=== PATIENT | female | born 1990 | race Caucasian/White ===

== ENCOUNTER 2017-03-07 14:02 | Emergency (ER) | payer OTHER ==
[~2017-03-07] VITALS: Ht 157.5 cm; Wt 86.6 kg
[~2017-03-07 14:02] MED LIST: MOTRIN 800MG T800 MG PO; PERCOCET 325 MG1 TA2 PO
--- NOTE | 2017-03-07 14:22 | ED GENERAL ADULT ---
See Addendum History of Present Illness General Chief Complaint: Fever Stated Complaint: FEVER TODAY, 38 WEEKS Source: patient Exam Limitations: no limitations Vital Signs & Intake/Output Vital Signs & Intake/Output Vital Signs Date Time Temp Pulse Resp B/P B/P Pulse O2 O2 Flow FiO2 Mean Ox Delivery Rate 03/07 1647 98.6 03/07 1607 100.8 127 18 101/53 95 Room Air 03/07 1551 101.5 03/07 1442 101.5 135 16 113/56 98 Room Air Allergies Coded Allergies: Cephalosporins (Mild, HIVES 03/07/17) Reconcile Medications Ferrous Sulfate (IRON) 325 MG (65 MG IRON) TABLET 2 TAB PO DAILY SUPPLEMENT ( Reported) Vit No.130/Iron/FA ( Tablet) 27 MG IRON-800 MCG TABLET 2 TAB PO DAILY SUPPLEMENT (Reported) Triage Note: PT TO ED FOR C/C OF FEVER, CHILLS, FEELING ACHEY SINCE THIS MORNING. DENIES N/V/D. PER PT, "SCRATCHY THROAT BUT I THINK IT'S ALLERGIES." PT TACHY IN TRAIGE 142. , SENT FROM CHILD . THEN TO BE CHECKED OUT IN CHILD PT IS 38 WEEKS . Triage Nurses Notes Reviewed? yes : Yes Patient currently breastfeeds: No HPI: 27 y/o at 38 weeks gestation, otherwise healthy female presenting with fevers with Tmax to 100.4F and myalgias since waking up this morning. Has had an itchy throat, but denies sore throat. Denies URI symptoms, cough, sputum, CP, SOB, abd pain, NVD, dysuria. Denies abd cramping/contractions, vaginal bleeding, or fluid leakage. No recent sick contacts or travel. (JEAN WATKINS,LEV) Past History Travel History Traveled to [place] past 21 day No Medical History Any Pertinent Medical History? 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 No (JENA WATKNIS,LEV) Review of Systems Review of Systems Constitutional: Reports: chills, fever. Denies: diaphoresis, malaise, weakness. EENTM: Reports: no symptoms. Respiratory: Reports: no symptoms. Cardiovascular: Reports: no symptoms. GI: Reports: no symptoms. Genitourinary: Reports: no symptoms. Musculoskeletal: Reports: muscle pain. Denies: joint pain. Skin: Reports: no symptoms. Neurological/Psychological: Reports: no symptoms. (LEV PENA PA-C) Physical Exam Physical Exam General Appearance: well developed/nourished, no apparent distress, comfortable, febrile to 101.5 and tachy to 130's Head: atraumatic Ears, Nose, Throat: normal ENT inspection Neck: normal inspection, supple, no LAD Respiratory: normal breath sounds, lungs clear Cardiovascular: normal peripheral pulses, tachycardia (130's), regular rhythm Gastrointestinal: normal bowel sounds, soft, non-tender, gravid abd Back: no CVAT Extremities: no edema Neurologic/Psych: awake, alert, oriented x 3, normal gait Skin: intact, normal color, warm/dry, no rashes Core Measures ACS in differential dx? No CVA/TIA Diagnosis: No Severe Sepsis Present: No Septic Shock Present: No (LEV PENA PA-C) Progress Differential Diagnoses I considered the following diagnoses in my evaluation of the patient: [Viral syndrome vs URI vs PNA vs gastroenteritis vs pyelonephritis] Plan of Care: Orders Procedure Date/time Status CULTURE,URINE 03/07 143 Active THROAT CULTURE W/QUICK STREP 03/07 1437 Active URINALYSIS 03/07 1437 Complete COMPREHENSIVE METABOLIC PANEL 03/07 1437 Complete CBC WITHOUT DIFFERENTIAL 03/07 1437 Complete RAPID VIRAL INFLUENZA A 03/07 1414 Complete EKG 03/07 1412 Active Laboratory Tests 03/07/17 1535: Urinalysis LIGHT H, Urine Color YEL, Urine Clarity HAZY H, Urine pH 6.5, Ur Specific [place] 1.025, Urine Protein TRACE H, Urine Ketones >=80, Urine Nitrite NEG, Urine Bilirubin NEG@ICTO, Urine Urobilinogen 1.0, Ur Leukocyte Esterase TRACE H, Ur Microscopic SEDIMENT EXAMINED, Urine RBC RARE, Urine WBC 3 -5 H, Ur Epithelial Cells MANY H, Urine Bacteria MANY H, Urine Mucus MOD H, Urine Hemoglobin NEG, Urine Glucose NEG 03/07/17 1530: Anion Gap 6, Estimated GFR > 60, BUN/Creatinine Ratio 6.0 L, Glucose 85, Calcium 8.1 L, Total Bilirubin 0.7, AST 15, ALT 34, Alkaline Phosphatase 161 H , Total Protein 5.1 L, Albumin 2.8 L, Globulin 2.3, Albumin/Globulin Ratio 1.2 , CBC w Diff NO MAN DIFF REQ, RBC 3.32 L, MCV 85.3, MCH 29.1, RDW 15.3 H, MPV 7.5, Gran % 88.0 H, Lymphocytes % 4.5 L, Monocytes % 7.1, Eosinophils % 0.2, Basophils % 0.2, Absolute Granulocytes 10.7 H, Absolute Lymphocytes 0.5 L, Absolute Monocytes 0.9 H, Absolute Eosinophils 0, Absolute Basophils 0, PUBS MCHC 34.1 Microbiology 03/07 1535 URINE ROUT: Urine Culture - RECD 03/07 1535 NASOPHARYN: Influenza Virus A & B Rapid Smear - COMP Rapid flu and strep were both neg. Strep culture pending. Urine with no signs of infection. Suspect viral syndrome. Pt now afebrile with normal HR at tylenol and IVF. Sent to CBC for heart monitoring. Pt discussed with Dr. Baron. (LEV PENA PA-C) Initial ED EKG: sinus tach to 137 (LEV PENA PA-C) Departure Departure Disposition: HOME OR SELF CARE Condition: Stable Clinical Impression Primary Impression: Fever Referrals: UNKNOWN Additional Instructions: Continue to use Tylenol as needed for fevers. Maintaining adequate fluid intake. Follow up in the childbirth center today for monitoring. Return to the ED for any new or worsening symptoms. Departure Forms: Customer Survey General Discharge Information (LEV PENA PA-C) PA/BOTTLE WASHING MACHINE OPERATOR Co-Sign Statement Statement: ED Attending supervision documentation- [] I saw and evaluated the patient. I have also reviewed all the pertinent lab results and diagnostic results. I agree with the findings and the plan of care as documented in the PA's/BOTTLE WASHING MACHINE OPERATOR's documentation. [X] I have reviewed the ED Record and agree with the PA's/BOTTLE WASHING MACHINE OPERATOR's documentation. [] Additions or exceptions (if any) to the PAs/BOTTLE WASHING MACHINE OPERATOR's note and plan are summarized below: [] (WES ENGLISH,ELIZABETH Jones) Critical Care Note Critical Care Note Critical Care Time: non-applicable (JEAN WATKINSLEV)
[2017-03-07 15:41] LABS: ABSOLUTE BASOPHIL COUNT 0 /CUMM (0.0-0.2); ABSOLUTE EOSINOPHIL COUNT 0 /CUMM (0.0-0.7); ABSOLUTE GRANULOCYTE CT 10.7 /CUMM (1.4-6.5); ABSOLUTE LYMPH COUNT 0.5 /CUMM (1.2-3.4); ABSOLUTE MONOCYTE COUNT 0.9 /CUMM (0.10-0.60); BASOPHIL % 0.2 % (0.0-2.0); EOSINOPHIL % 0.2 % (0-5); HEMATOCRIT 28.3 % (37-47); MEAN CORPUSCULAR HGB 29.1 PG (27.0-31.0); MEAN CORPUSCULAR HGB CONC 34.1 G/DL (33.0-37.0); MEAN CORPUSCULAR VOLUME 85.3 FL (81.0-99.0); MEAN PLATELET VOLUME 7.5 FL (7.4-10.4); PLATELET COUNT 172 /CUMM (130-400); RBC DISTRIBUTION WIDTH 15.3 % (11.5-14.5); RED BLOOD CELL CT 3.32 /CUMM (4.20-5.40); WHITE BLOOD CELL COUNT 12.2 /CUMM (4.8-10.8)
[2017-03-07] MEDS ORDERED: IRON325 M3 PO (16:50)
[2017-03-07] MEDS ORDERED: PRENATAL TABLE1 EAC2 PO (16:50)
[2017-03-07 17:15] VITALS: BP 92/52
== END 2017-03-07 17:30 ==
LOC: ERH 14:02
PROVIDERS: Physician Assistant
DX: O99.89 Other specified diseases and conditions complicating pregnancy, childbirth and the puerperium (principal); R50.9 Fever, unspecified; Z3A.38 38 weeks gestation of pregnancy
CPT/HCPCS: 81001; 87086; 87804; 87804-59; 93005; 93010; G0463; J0131

== ENCOUNTER 2017-03-17 05:50 | Inpatient (IN) | payer OTHER ==
--- NOTE | 2017-03-14 12:45 | History & Physical ---
General Information and HPI MD Statement: I have seen and personally examined LATISHAMICA and documented this H&P. The patient is a 27 year old female at [39] weeks and [3] days gestation who presented with a chief complaint of [scheduled repeat C/S- due to short interval between pregnancies .]. Source of Information: patient, old records Exam Limitations: no limitations History of Present Illness: 27 yo LMP 06/13/2017 and FRANCISCA 03/21/2017 is adddmittied @ 39 3/7 for repeat C/S. Issues for this 1.) Short interval between pregnancies: delivered 09/26/2015 - emergency C/S - occult prolapse - fully dilated. Conceived June 2016, less than 12 months from c/s delivery 2.) Mat BMI 35.8 @ start of NOW @ 34.8 3.) prior c/s - anterior placenta NOT over the scar 4.) SECOND TRIMESTER ANEMIA - RXED IRON AND MVI Allergies/Medications Allergies: Coded Allergies: Cephalosporins (Mild, HIVES 03/07/17) Home Med list Ferrous Sulfate (IRON) 325 MG (65 MG IRON) TABLET 2 TAB PO DAILY SUPPLEMENT ( Reported) Vit No.130/Iron/FA ( Tablet) 27 MG IRON-800 MCG TABLET 2 TAB PO DAILY SUPPLEMENT (Reported) Compliance With Home Meds: GOOD Past History butt sawyer History : 2 Para: 01 Last Menstrual Period: 12/26/14 Estimated Delivery Date: 10/02/15 Past butt sawyer History: 09/2015 stat c/s occult prolapse Past Pregnancies Past Pregnancies: Date of Delivery: 10/02/2015 Gestational Age: 39 Length of Labor: 25 Weight: 8#1 Type of Delivery: Anesthesia: spinal Place of Delivery: [facility] Complications: none Medical History Blood Transfusion Hx: No Neurological: NONE EENT: NONE Cardiovascular: NONE Respiratory: NONE Gastrointestinal: NONE Hepatic: NONE Renal: NONE Musculoskeletal: NONE Psychiatric: NONE Endocrine: obesity Blood Disorders: NONE Cancer(s): NONE 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 Home Who Do You Live With? spouse, child, self Primary Language: Lithuanian Smoking Status: Never Smoked ETOH Use: denies use Illicit Drug Use: denies illicit drug use Review of Systems Review of Systems: Neg for Cardiac pulmosry GI complaints Exam & Diagnostic Data Last 24 Hrs of Vital Signs/I&O Afebrile VSS Obstetric Exam Wgt Gained During : lost @ 11 lbs Pelvimetry: unproven Dilation (cm): 0 Effacement (%): 0 Station: 0 Membranes: intact Fluid: unknown Fundal Height (cm): 38 Multiple Gestation? No Contractions: none Infant #1 - FHR Baseline: 140 Category: 1 Estimated Weight: 8#0 Presentation: last u/s @ office breech Patient for Induction? No Physical Exam General Appearance Alert, Oriented X3, Cooperative, No Acute Distress Skin No Significant Lesion Cardiovascular Regular Rate Lungs Normal Air Movement Abdomen Normal Bowel Sounds, Soft, No Tenderness, No Hepatospenomegaly, uterine fundus @ 38 cm EF Wt @ 8# FHR 140's Cat 1 no palpable contractions Neurological Normal Gait, Normal Speech Extremities No Tenderness/Swelling Reproductive (FEMALE) Normal female genitalia Labs Blood Type & Rh: O+ Antibody Screen: N Hct/Hgb & Platelets #1: 11.7/32.7 PLTS 257,000 Hct/Hgb & Platelets #2: 9.9/31.7 263,000 Rubella: IMM VDRL #1: N VDRL #2: N HbsAg: N HIV #1: N HIV #2 N 1 Hr P 3 Hr PG: N/A Group B Strep: NEG Initial Ultrasound: 08/15/2016 S=D=U/S @ 8 6/7 WKS Anatomy Ultrasound: 11/07/2016 S=D=U/S @ 20 WKS NL ANATOMY @ [facility] ANT PLACENTA 3 VC Ultrasound for EFW: 02/23/2017 45% BPP / ANT PLACENTA NOT OVER THE SCAR Genetic Testing: DECLINED 1ST TRIM SCREEN AND MSAFP Assessment/Plan Assessment/Plan: IUP @ 39 + WKS FOR REPEAT C/S. (SHORT INTERVAL BETWEEN PREGNANCIES) UNSTABLE LIE- BREECH PRESENTATION ON ADMISSION ANT PLACENTA NOT OVER THE PRIOR SCAT\R ANEMIA OF PRENANCY IF H/H PREOP < 10 WILL TXC 2 UNITS pRBCs, OPPOSED TO TXS, IF PRE-OP HGB < 9 CONSIDER PREOP TRANSFUSION BMI@ 35 + R C/S LOVENOX PP As Ranked By This Provider Problem List: 1. 2. Obesity (BMI 35.0-39.9 without comorbidity) 3. Previous delivery affecting 4. Breech delivery Core Measures/Miscellaneous Lee Catheter Date In: 03/17/17 Still Needed? Yes Venous Thromboembolism VTE Risk Factors: Obesity, /, Surgery VTE Contraindications: Abn Clotting Times (FALL RISK) VTE Diagnosis: No Beta Srinath Is Beta Srinath a Home Med? No If No, Why Not? NOT INDICATED Antibiotics Is Patient on Antibiotics? Yes If Yes: prophylaxis Attending MD Review Statement Attending Statement Attending MD Statement: examined this patient, reviewed EMR data (avail), discussed w/nursing Attending Assessment/Plan: Gaudencio ABBOTT MD
[~2017-03-17] VITALS: Ht 160 cm; Wt 87.5 kg
[~2017-03-17 05:50] MED LIST changes: +IRON325 M3 PO; +PRENATAL TABLE1 EAC2 PO
[2017-03-17 06:14] VITALS: BP 103/60
[2017-03-17 06:25] LABS: ABSOLUTE BASOPHIL COUNT 0 /CUMM (0.0-0.2); ABSOLUTE EOSINOPHIL COUNT 0.1 /CUMM (0.0-0.7); ABSOLUTE GRANULOCYTE CT 7.4 /CUMM (1.4-6.5); ABSOLUTE LYMPH COUNT 1.7 /CUMM (1.2-3.4); ABSOLUTE MONOCYTE COUNT 0.8 /CUMM (0.10-0.60); BASOPHIL % 0.4 % (0.0-2.0); GRANULOCYTE % 73.9 % (42.2-75.2); HEMATOCRIT 30.1 % (37-47); MEAN CORPUSCULAR HGB 28.5 PG (27.0-31.0); MEAN CORPUSCULAR HGB CONC 33.5 G/DL (33.0-37.0); MEAN CORPUSCULAR VOLUME 85.2 FL (81.0-99.0); MEAN PLATELET VOLUME 7.4 FL (7.4-10.4); PLATELET COUNT 252 /CUMM (130-400); RBC DISTRIBUTION WIDTH 15.6 % (11.5-14.5); RED BLOOD CELL CT 3.53 /CUMM (4.20-5.40); WHITE BLOOD CELL COUNT 10.1 /CUMM (4.8-10.8)
--- NOTE | 2017-03-17 09:53 | Operative Report ---
Operative/Inv Procedure Report Surgery Date: 03/17/17 Name of Procedure: REPEAT CESARIAN SECTION AND BILATERAL TUBAL LIGATION Pre-Operative Diagnosis: prior C/S with less than 1 yr to conception of this , Breech, multiparity Post-Operative Diagnosis: same toño breech presentation Estimated Blood Loss: scant (750 ML), 750 ML Surgeon/Salvager: MILENA ENGLISH,MACHELLE Sun MD certified registered dental assistant Anesthesia: spinal Monitors: Blood pressure cuff EKG electrodes pulse Oximeter IV Fluids: 1500 crystalloid Implants: None Urine Output: 50 ML,, patient voided before going to the OR Drains: Lee Specimens: Midportion of right and left fallopian tubes Microbiology: None Tourniquet: None Complications: none Condition: Good Operative Indication: 27-year-old 2 para 1 who previously had a section for abnormal heart rate tracing due to occult cord prolapse conceives less than 12 months since prior section. Presents with breech presentation and complaint of multiparity. Patient request repeat section and bilateral tubal ligation Operative/Procedure Note Note: Patient was brought to the OR and placed in a sitting position on the operating room table. Timeout was discussed by the team and agreed upon. Patient received gentamicin and clindamycin prophylactic antibiotics upon arrival to the OR. Spinal anesthetic was then placed without complication. Patient was then transferred to the dorsal supine position with a right hip wedge. Lee cath was placed pneumatic compression boots were placed to lower extremities. Her abdominal wall pannus was carefully taped to the head of the OR table and abdominal prep was undertaken. After the abdominal prep dried, patient was draped in the usual sterile fashion. The area of her prior Pfannenstiel incision was infiltrated with half percent Marcaine. Transverse incision was made through her prior incision. This incision was then carried down through the subcutaneous tissue to the fascia. Fascia was incised transversely and then sharply dissected to the right and left sides. Some dense adhesions of the rectus muscle to the posterior aspect of the fascia were then taken down in the midline. The rectus muscle was divided longitudinally and the parietal peritoneum was entered superiorly manually and then this incision was extended to the right left sides manually. The utero vesicular fold the bladder peritoneum was identified elevated and incised transversely. The bladder was reflected inferiorly. Transverse incision was made in the low uterine segment. The uterine cavity was entered bluntly clear amniotic fluid was noted. Toño breech presentation was encountered. But the buttocks were shifted to the patient's right off the midline. Buttocks had to be realigned over the midportion of the incision. The buttocks of the were then carefully delivered through the uterine and abdominal wall incision, the trunk of the was carefully supported and the legs were delivered independently, first the left leg then the right leg. The was maintained in a back position The infant was further delivered to the level of the shoulders right left arms were carefully delivered. The head was kept in the flexed position and the vertex portion the was delivered at 08:12 on 03/17/2017. Infant's cord was triply clamped cut and the was handed to the pediatric team for evaluation birthweight 7 lbs. 14 oz. live viable female 3570 g Apgars 9, 9, and 9. Cord pH 7.34. Placenta was then spontaneously delivered intact normal configuration 3 vessel cord at 8:13. The uterus was exteriorized draped with wet lap pad. Uterine cavity was wiped clean with a lap pad. There was some atony of the low uterine segment to initially did not respond to manual massage, myometrial Pitocin, and IV Pitocin. Methergine was then given subcutaneous 1. No residual low segment atony was noted. The uterine incision was then closed in 2 separate layers; first layer running locking and the second layer was running imbricating. Midline of the incision required several [id number] sutures for adequate hemostasis. There was evidence of normal anatomy of the uterus fallopian tubes and ovaries at time of surgery. We then turned attention to the left fallopian tube. Midportion of fallopian tube was elevated with [place] clamp. The initial suture was placed in the mesosalpinx below the tube and while this suture was being tied unfortunately the plain gut suture broke and in doing so severed he left fallopian tube. The free aspect of the proximal left fallopian tube was then grasped with a hemostat and the tubal ligation was then performed. A 3 cm segment of the distal portion of fallopian tube was then handed off the table. Small bleeder in the mesosalpinx was elevated and then suture ligated with a free tie. The proximal portion of the fallopian tube was also carefully tied off. Good hemostasis was observed. We then turned our attention to the right fallopian tube. In a Jennifer clamp and elevated the midportion the tube. Suture was placed through the mesosalpinx and a suture was placed at the base of the knuckle of fallopian tube. The mesosalpinx of the fallopian tube above this ligature was then opened. Free ties of chromic were then passed. The lower aspects of the knuckle of fallopian tube was then independently ligated and the rest of fallopian tube above these ligatures was excised and handed off the table. Unipolar cautery was used to manage any small bleeding sites. We reinspected the left fallopian tubal area, and a second free tie ligature was placed over the previously ligated vessels of the mesosalpinx, ensuring good hemostasis. Pelvis was irrigated, and the fluid was aspirated. Uterus was returned the abdominal pelvic cavity. Both fallopian tube ligation sites were with evidence of good hemostasis. The uterine incision remained good hemostasis. Parietal peritoneum was closed with running suture. Muscle layer was inspected several small bleeding sites were noted at the most superior aspect of the rectus muscle in the midline just beneath the fascia. His were separately ligated with 2-0 Vicryl. All other small bleeding sites were managed with unipolar cautery. Fascia then was closed with 2 separate segments running intermittent locking 0 Vicryl. Subcutaneous tissues irrigated and the fluid was aspirated. Subcutaneous tissue was closed with a running plain gut after unipolar cautery was used to manage small bleeders in the subcutaneous tissue. Skin edges reapproximated with Monocryl, in a subcuticular closure. A completion of this procedure there was good hemostasis at all levels of closure. Sponge needle and instrument counts were correct 4. Pressure dressing was applied. Manual pressure on the uterine fundus revealed no significant bleeding vaginally vaginal exam revealed no clot in the upper vaginal vault or within the low uterine segment. Patient was transferred to [facility] to be taken to the recovery room in good condition Due to her BMI greater than 30 and a section delivery patient will receive Lovenox daily starting 12 hours after delivery. Findings: Time of delivery baby was in a toño breech presentation. Delivery was accomplished with a careful breech extraction. Time of delivery 18:12 on 2016. Live viable female 7 lbs. 14 oz. 3570 g Apgars 9, 9, and 9. Cord pH 7.34. Normal placenta 3 vessel cord. We'll configuration of the uterus fallopian tubes and ovaries. Repeat section and bilateral tubal ligation was performed. Small bleeder of the left mesosalpinx was managed with 2 free ligatures. Good hemostasis at all levels of closure Discharge Disposition: CC: LEOPOLDO ENGLISH,MOISES German
[2017-03-18 05:54] LABS: ABSOLUTE BASOPHIL COUNT 0 /CUMM (0.0-0.2); ABSOLUTE EOSINOPHIL COUNT 0 /CUMM (0.0-0.7); ABSOLUTE GRANULOCYTE CT 8.7 /CUMM (1.4-6.5); ABSOLUTE LYMPH COUNT 1.2 /CUMM (1.2-3.4); ABSOLUTE MONOCYTE COUNT 0.9 /CUMM (0.10-0.60); BASOPHIL % 0.1 % (0.0-2.0); EOSINOPHIL % 0.4 % (0-5); GRANULOCYTE % 79.9 % (42.2-75.2); HEMATOCRIT 26.6 % (37-47); MEAN CORPUSCULAR HGB CONC 32.8 G/DL (33.0-37.0); MEAN CORPUSCULAR VOLUME 85.3 FL (81.0-99.0); MEAN PLATELET VOLUME 7.7 FL (7.4-10.4); PLATELET COUNT 220 /CUMM (130-400); RBC DISTRIBUTION WIDTH 15.9 % (11.5-14.5); RED BLOOD CELL CT 3.12 /CUMM (4.20-5.40); WHITE BLOOD CELL COUNT 10.9 /CUMM (4.8-10.8)
--- NOTE | 2017-03-18 18:06 | PN- Post Delivery/GYN ---
Subjective Subjective: doing ok- initially a little light headed w/ walking but this resolved. Afternoon she has been walking without problem with in her room and has been up in the shower without any difficulty. Review of Systems: Currently negative for cardiac pulmonary GI complaints Objective Last 24 Hrs of Vital Signs/I&O Temp 98.7 pulse 80-90 bpm blood pressure 110/68 respirations 16 pulse ox 99% room air Physical Exam General Appearance Alert, Oriented X3, Cooperative, No Acute Distress Skin No Significant Lesion Cardiovascular Regular Rate Lungs Normal Air Movement Abdomen Normal Bowel Sounds, Soft, No Tenderness, No Hepatospenomegaly, uterine fundus is midline 2 fingerbreadths below the umbilicus nontender incision is clean dry and intact without erythema or induration or drainage. Neurological Normal Gait, Normal Speech Extremities No Tenderness/Swelling Reproductive (FEMALE) Normal female genitalia, average lochia Current Medications: Current Medications Sig/Linda Start time Last Medication Dose Route Stop Time Status Admin Acetaminophen 650 MG Q4P PRN 03/17 0915 AC PO Bisacodyl 10 MG DAILY NEEDED PRN 03/17 0915 AC MI Diphenhydramine HCl 25 MG Q6P PRN 03/17 0915 AC IV Docusate Sodium 100 MG AT BEDTIME PRN 03/17 0915 AC PO Enoxaparin Sodium 40 MG 2200 03/17 2200 AC 03/17 SC 2030 Hydroxyzine HCl 50 MG AT BEDTIME NEED.. 03/18 0000 AC PO Ibuprofen 800 MG .STK-MED ONE 03/18 0821 DC PO 03/18 0822 Ibuprofen 800 MG Q6P PRN 03/17 0915 AC 03/18 PO 1558 Ketorolac 30 MG .STK-MED ONE 03/18 0353 DC Tromethamine IM 03/18 0354 Ketorolac 30 MG Q6P PRN 03/17 1500 DC 03/18 Tromethamine IV 03/18 0914 0300 Lactated Ringer's 1,000 ML Q8H 03/17 0915 AC 03/17 IV 1726 Magnesium Hydroxide 30 ML DAILY NEEDED PRN 03/17 0915 AC PO Methylergonovine 0.2 MG .[STAT] 03/17 0915 AC Maleate IM Metoclopramide HCl 10 MG Q6P PRN 03/17 1000 AC IV Naloxone HCl 0.2 MG .Q5MIN PRN 03/17 1000 AC IV Oxycodone/ 1 TAB Q4P PRN 03/17 0915 AC 03/18 Acetaminophen PO 1803 Oxycodone/ 2 TAB Q4P PRN 03/17 0915 AC Acetaminophen PO Senna 187 MG AT BEDTIME NEED.. 03/17 0915 AC PO Last 24 Hrs of Labs/Guerrero: Laboratory Tests 03/18/17 0520: CBC w Diff NO MAN DIFF REQ, RBC 3.12 L, MCV 85.3, MCH 28.0, RDW 15.9 H, MPV 7.7, Gran % 79.9 H, Lymphocytes % 11.0 L, Monocytes % 8.6, Eosinophils % 0.4, Basophils % 0.1, Absolute Granulocytes 8.7 H, Absolute Lymphocytes 1.2, Absolute Monocytes 0.9 H, Absolute Eosinophils 0, Absolute Basophils 0, PUBS MCHC 32.8 L Assessment/Plan Assessment/Plan Stable day #1. Patient is doing surprisingly well with a hemoglobin of 8.7 hematocrit of 26.. She has no orthostatic complaints. Patient is well aware of her significant anemia and was that she will require vitamins and iron on a daily basis when she is discharged from the hospital. Problem List: 1. 2. Breech delivery 3. Previous delivery affecting 4. Obesity (BMI 35.0-39.9 without comorbidity) 5. Anemia associated with acute blood loss Attending MD Review Statement Attending Statement Attending MD Statement: examined this patient, discussed with family, reviewed EMR data (avail), discussed with nursing Attending Assessment/Plan: Zoraida Orellana
--- NOTE | 2017-03-19 13:31 | PN- OBGYN ---
Surgical Brief Attending Note Brief Attending Note: NO COMPLAINTS. DOING WELL. AMBULATING , VOIDING, TOLERATING PAIN AND PO. + NURSING, SMALL LOCHIA VSSAF ABDOMEN: INC C/D/I, FF@U , APPROOPRIATELY TENDER EXT: NO CALF TENDERNESS OR EDEMA Laboratory Tests 03/18/17 0520: CBC w Diff NO MAN DIFF REQ, RBC 3.12 L, MCV 85.3, MCH 28.0, RDW 15.9 H, MPV 7.7, Gran % 79.9 H, Lymphocytes % 11.0 L, Monocytes % 8.6, Eosinophils % 0.4, Basophils % 0.1, Absolute Granulocytes 8.7 H, Absolute Lymphocytes 1.2, Absolute Monocytes 0.9 H, Absolute Eosinophils 0, Absolute Basophils 0, PUBS MCHC 32.8 L 03/17/17 0605: CBC w Diff NO MAN DIFF REQ, RBC 3.53 L, MCV 85.2, MCH 28.5, RDW 15.6 H, MPV 7.4, Gran % 73.9, Lymphocytes % 16.9 L, Monocytes % 7.8, Eosinophils % 1.0, Basophils % 0.4, Absolute Granulocytes 7.4 H, Absolute Lymphocytes 1.7, Absolute Monocytes 0.8 H, Absolute Eosinophils 0.1, Absolute Basophils 0, PUBS MCHC 33.5, Urinalysis LIGHT H, Urine Color YEL, Urine Clarity CLDY H, Urine pH 7.0, Ur Specific [place] 1.020, Urine Protein NEG, Urine Ketones NEG, Urine Nitrite NEG, Urine Bilirubin NEG, Urine Urobilinogen 1.0, Ur Leukocyte Esterase MOD H, Ur Microscopic SEDIMENT EXAMINED, Urine RBC 1-3, Urine WBC 10-15 H, Ur Epithelial Cells MANY H, Urine Bacteria MANY H, Urine Mucus FEW, Urine Hemoglobin NEG, Urine Glucose NEG Microbiology 03/17 924 URINE ROUT: Urine Culture - CAN Cancelled: DUPLICATE 03/17 07 URINE ROUT: Urine Culture - RES A/P POD 2. DOING WELL. ANTICIPATE D/C TOMORROW. ROUTINE CARE DISCUSSED. ASX ANEMIA. PT STABLE. WILL DISCHARGE TO HOME ON IRON.
[2017-03-20] MEDS ORDERED: IBUPROFEN800 M1 PO (10:26)
[2017-03-20] MEDS ORDERED: PERCOCET 5-3251 EACH PO (10:26)
--- NOTE | 2017-03-20 10:30 | PN- Post Delivery/GYN ---
Subjective Subjective: feeling well Review of Systems Constitutional: Reports: no symptoms. Cardiovascular: Denies: chest pain. Respiratory: Denies: short of breath. Gastrointestinal: Denies: nausea, vomiting. Neurological/Psychological: Denies: anxiety, depressed. Objective Last 24 Hrs of Vital Signs/I&O vss Physical Exam General Appearance Alert, Oriented X3, Cooperative, No Acute Distress Cardiovascular Regular Rate Lungs Clear to Auscultation Abdomen Soft, incision clean and dry fundus firm Pelvic (FEMALE) lochia serosanganous Current Medications: Current Medications Sig/Linda Start time Last Medication Dose Route Stop Time Status Admin Acetaminophen 650 MG Q4P PRN 03/17 915 AC PO Bisacodyl 10 MG DAILY NEEDED PRN 03/17 915 AC [place] Diphenhydramine HCl 25 MG Q6P PRN 03/17 915 AC IV Docusate Sodium 100 MG .STK-MED ONE 03/19 1706 DC PO 03/19 1707 Docusate Sodium 100 MG AT BEDTIME PRN 03/17 0915 AC 03/19 PO 2225 Enoxaparin Sodium 40 MG 2200 03/17 2200 AC 03/19 SC 2222 Hydroxyzine HCl 50 MG AT BEDTIME NEED.. 03/18 0000 AC PO Ibuprofen 800 MG .STK-MED ONE 03/19 2308 DC PO 03/19 2309 Ibuprofen 800 MG .STK-MED ONE 03/19 1706 DC PO 03/19 1707 Ibuprofen 800 MG .STK-MED ONE 03/19 1705 DC PO 03/19 1706 Ibuprofen 800 MG Q6P PRN 03/17 0915 AC 03/20 PO 0619 Magnesium Hydroxide 30 ML DAILY NEEDED PRN 03/17 0915 AC PO Methylergonovine 0.2 MG .[STAT] 03/17 915 AC Maleate IM Metoclopramide HCl 10 MG Q6P PRN 03/17 1000 AC IV Naloxone HCl 0.2 MG .Q5MIN PRN 03/17 1000 AC IV Oxycodone/ 1 TAB Q4P PRN 03/17 0915 AC 03/20 Acetaminophen PO 1027 Oxycodone/ 2 TAB Q4P PRN 03/17 0915 AC Acetaminophen PO Senna 187 MG AT BEDTIME NEED.. 03/17 0915 AC PO Assessment/Plan Assessment/Plan pod #3 vss afebrile plan d/c home f/u 1 week Problem List: 1. delivery delivered Attending MD Review Statement Attending Statement Attending MD Statement: examined this patient, discussed with family, discussed with nursing
--- NOTE | 2017-04-01 12:45 | Discharge Summary ---
Visit Information Visit Dates Admission Date: 03/17/17 Discharge Date: 03/20/17 Hospital Course Course Attending Physician: MILENA ENGLISH,MACHELLE Torres Primary Care Physician: PATIENT HAS NO PRIMARY CARE DR Hospital Course: 27 yo LMP 06/13/2017 and FRANCISCA 03/21/2017 is adddmittied @ 39 3/7 for repeat C/S. Issues for this 1.) Short interval between pregnancies: delivered 09/26/2015 - emergency C/S - occult prolapse - fully dilated. Conceived June 2016, less than 12 months from c/s delivery 2.) Mat BMI 35.8 @ start of NOW @ 34.8 3.) prior c/s - anterior placenta NOT over the scar 4.) SECOND TRIMESTER ANEMIA - RXED IRON AND MVI Patient was a same-day admit for repeat section. On 03/17/2017 she underwent repeat section of a live viable female weight was 7 lbs. 14 oz., 3510 g, Apgars 9, 9, and 9. Her admission hemoglobin hematocrit was 10.1/30. Her postop day #1 hemoglobin hematocrit 8.7/26.6. Postoperatively she had a benign course. Patient remained afebrile during her hospital time. She was easily advanced to regular diet. She was ambulating without signs of hypovolemia. Her pain was controlled with oral pain medication. And by the third postoperative day her incision remained clean dry and intact without erythema or induration or drainage. Patient was discharged to home on postop day #3 Allergies: Coded Allergies: Cephalosporins (Mild, HIVES 03/07/17) Significant Procedures: 03/17/2017 repeat low cervical transverse section Pertinent Lab Results: Admission hemoglobin hematocrit 10.1/30. Postop day #1 hemoglobin hematocrit 8.7/26.6 Disposition Summary Disposition Principal Diagnosis: Term live child delivered Additional Diagnosis: #1 History of prior section, short interval between pregnancies. #2 planned repeat low cervical transverse section #3 Second trimester anemia now with further anemia due to acute blood loss. #4 maternal BMI 35, patient was placed on Lovenox which she remained on with daily dosage and total time of discharge Discharge Disposition: home or self care Discharge Instructions General Discharge Information Code Status: Full Code Patient's Diet: Regular Patient's Activity: Self-limited to full activities by 6 weeks Follow-Up Instructions/Appts: Patient will be seen by the nursing staff several days following discharge from the hospital. She'll be seen in the office at 2 and 6 weeks postoperatively Medications at Discharge Discharge Medications: Continue taking these medications: Ferrous Sulfate (IRON) 325 MG (65 MG IRON) TABLET 2 Tablet ORAL DAILY Vit No.130/Iron/FA ( Tablet) 27 MG IRON-800 MCG TABLET 2 Tablet ORAL DAILY Start taking the following new medications: Ibuprofen (Ibuprofen) 800 MG TABLET 800 Milligram ORAL EVERY SIX HOURS NEEDED as needed for UTERINE CRAMPING Qty = 60 No Refills Comments: Last Taken:03/20/17 Time:0619 Oxycodone HCl/Acetaminophen (Percocet 5-325 MG Tablet) 5 MG-325 MG TABLET 1 Tablet ORAL EVERY 4 HOURS NEEDED as needed for PAIN SCALE 4-6 (MODERATE ) Qty = 30 No Refills Comments: Last Taken:03/20/17 Time:1025 Copies To: MACHELLE ORELLANA MD Attending MD Review Statement Documenting Attending: MACHELLE ORELLANA MD Other Findings: Machelle Orellana MD ending dictation
== END 2017-03-20 11:45 | DRG 765 ==
LOC: GNO 05:50
PROVIDERS: Obstetrics & Gynecology; ADMIT Obstetrics & Gynecology
PROC: 0UB70ZZ Excision of Bilateral Fallopian Tubes, Open Approach (ICD-10-PCS; principal; 2017-03-17)
PROC: 10D00Z1 Extraction of Products of Conception, Low, Open Approach (ICD-10-PCS; principal; 2017-03-17)
DX: O34.211 Maternal care for low transverse scar from previous cesarean delivery (principal); O32.1XX0 Maternal care for breech presentation, not applicable or unspecified; D62 Acute posthemorrhagic anemia; Z30.2 Encounter for sterilization; N85.8 Other specified noninflammatory disorders of uterus; O69.81X0 Labor and delivery complicated by cord around neck, without compression, not applicable or unspecified; Z68.35 Body mass index [BMI] 35.0-35.9, adult; O99.214 Obesity complicating childbirth; Z3A.39 39 weeks gestation of pregnancy; Z37.0 Single live birth; O90.81 Anemia of the puerperium
CPT/HCPCS: GNOS; 81001; 87086; 88302; J1580; J1650; J1885; J2210; J7120